=== PATIENT | male | born 1965 | race Caucasian/White ===

== ENCOUNTER 2025-01-22 06:16 | Day surgery (SDC) | payer BC, SELFPAY | END 2025-01-22 08:54 | disposition home or self-care (01) | LOC: GI 06:16 | PROVIDERS: ATTENDING PHYSICIAN Internal Medicine Gastroenterology | DX: Z12.11 Encounter for screening for malignant neoplasm of colon (principal); R19.5 Other fecal abnormalities; K64.0 First degree hemorrhoids; K57.30 Diverticulosis of large intestine without perforation or abscess without bleeding; D12.3 Benign neoplasm of transverse colon; K63.5 Polyp of colon | CPT/HCPCS: 45380; 88305 ==

== ENCOUNTER → 2025-08-12 14:08 | Outpatient (REF) | payer BC, SELFPAY | LOC: HWRAD 14:08 | DX: M25.562 Pain in left knee (principal); Z91.81 History of falling | CPT/HCPCS: 73564 ==